=== PATIENT | female | born 1975 | race Caucasian/White ===

== ENCOUNTER 2019-07-03 23:38 | Emergency (ER) | payer BC, OTHER ==
[2019-07-04 00:01] VITALS: BP 128/97; PULSE 87
--- NOTE | 2019-07-04 00:11 | EDM.PDOC ---
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 Thornton is a very pleasant 44-year-old woman with a past medical history significant for MS and SVT, who works as a mortgage assistant for [employer]. She states that she was out on a call for a patient ( ) who had , according to his neighbors, intentionally injected a large dose of Lantus insulin in an attempt to suicide. When Mrs. Thornton and her partner arrived, the patient attempted to inject himself again. Mrs. Thornton lunged for the Lantus insulin pen, and accidentally got stuck on the webbing between her right 2nd and 3rd fingers. She is otherwise uninjured. The patient denies recent fever, chills, sore throat, ear pain, nasal or sinus congestion, cough, dyspnea, chest pain, palpitations, nausea, vomiting, constipation, diarrhea, abdominal pain, urinary symptoms, recent weight gain or weight loss, recent bloody bowel movements or black bowel movements, recent joint aches, headaches, or rashes. The patient's PCP is Dr. Homero Abrams, at [facility]. Her Neurologist is Dr. Annabelle Rasmussen. She received an influenza vaccine this season. - Related Data Allergies Allergy/AdvReac Type Severity Reaction Status Date / Time morphine Allergy Intermediate Rash Verified 07/04/19 00:01 ondansetron Allergy Mild Rash Verified 07/04/19 00:01 prochlorperazine Allergy Mild dystonia Verified 07/04/19 00:01 Sulfa (Sulfonamide Allergy Mild Hives Verified 07/04/19 00:01 Antibiotics) Home Meds: Home Meds Baclofen 5 mg PO 07/04/19 [History] Metoprolol Succinate 07/04/19 [History] Ocrelizumab [Ocrevus] 07/04/19 [History] Pregabalin [Lyrica] 07/04/19 [History] tiZANidine [Zanaflex] 4 mg PO BID 07/04/19 [History] Past Medical History Cardiovascular History: Reports: Arrhythmia (SVT) 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: Other (See Below) (Ovarian cysts) Neurological History: Reports: MS Psychiatric History: Reports: Other (See Below) (Fibromyalgia) - Past Surgical History Female Surgical History: Reports: Oophorectomy (complete right, incomplete left), Other (See Below) (Bladder suspension and pelvic floor repair) Musculoskeletal Surgical History: Reports: Other (See Below) (Right foot fusion) Social & Family History - Tobacco Use Smoking Status *Q: Never Smoker - Alcohol Use Alcohol Use History: Yes Alcohol Use Frequency: Socially - Recreational Drug Use Recreational Drug Use: No - Living Situation & Occupation Living situation: Reports: , with Spouse, with Family (Son) Occupation: Employed ([employer]) ED ROS GENERAL - Review of Systems Review Of Systems: Comprehensive ROS is negative, except as noted in HPI. ED EXAM, GENERAL - Physical Exam Exam: See Below Exam Limited By: No Limitations General Appearance: Alert, WD/WN, No Apparent Distress Extremities: Other (No visible injury to the needlestick site, to the webbing between the right 2nd and 3rd fingers) Course - Vital Signs Last Recorded V/S: Last Vital Signs Temp 36.6 C 07/03/19 23:58 Pulse 87 07/03/19 23:58 Resp 16 07/03/19 23:58 BP 128/97 H 07/03/19 23:58 Pulse Ox 97 07/03/19 23:58 - Orders/Labs/Meds Orders: Active Orders 24 hr Category Date Time Status HEPATITIS B SURF AB QUANT [REF] Stat Lab 07/03/19 23:57 Ordered Labs: Laboratory Tests 07/04/19 Range/Units 00:10 Hepatitis C Antibody Negative (NEGATIVE) HIV-1 Ab Rapid Screen Negative (NEGATIVE) - Re-Assessments/Exams Free Text/Narrative Re-Assessment/Exam: 07/04/19 00:06 I have ordered a hepatitis B surface antibody (which is a send-out test), a hepatitis C antibody, and an HIV rapid screen. The patient will be discharged so that she can return to work, and she will call us later tonight for the test results. In the meantime, the source patient, , will be tested for hepatitis B surface antigen, hepatitis C antibody, and HIV rapid screen. 07/04/19 02:00 The patient's hepatitis C antibody returned negative. Her HIV rapid screen returned negative. Departure - Departure Time of Disposition: 00:07 Disposition: Home, Self-Care 01 Condition: Good Clinical Impression: Needlestick injury of finger of right hand - Discharge Information *PRESCRIPTION DRUG MONITORING PROGRAM REVIEWED*: Not Applicable *COPY OF PRESCRIPTION DRUG MONITORING REPORT IN PATIENT FERNANDO: Not Applicable Instructions: Body Fluid Exposure Information, Needlestick and Sharps Injury, [id number] Referrals: Homero Abrams MD [Primary Care Provider] - Annabelle Rasmussen MD [Ordering Only Provider] - Forms: ED Department Discharge Additional Instructions: You were seen in the emergency room after attempting to take a Lantus pen away from a suicidal patient, accidentally getting stuck in the webbing between your 2nd and 3rd fingers your right hand. A baseline hepatitis B surface antibody, hepatitis C antibody, and HIV rapid screen have been obtained. The hepatitis C and HIV tests will result tonight, while the hepatitis B surface antibody test is a send-out test. In the meantime, a hepatitis B surface antigen, hepatitis C antibody, and HIV rapid screen have been drawn on the source patient . If any other problems, please do not hesitate to return to the ER. Sepsis Event Note - Evaluation Sepsis Screening Result: No Definite Risk - Focused Exam Vital Signs: Vital Signs Temp Pulse Resp BP Pulse Ox 07/03/19 23:58 36.6 C 87 16 128/97 H 97 Date Exam was Performed: 07/04/19 Time Exam was Performed: 02:00 - My Orders Last 24 Hours: My Active Orders 07/03/19 23:57 HEPATITIS B SURF AB QUANT [REF] Stat - Assessment/Plan Last 24 Hours: My Active Orders 07/03/19 23:57 HEPATITIS B SURF AB QUANT [REF] Stat
== END 2019-07-04 00:20 | disposition home or self-care (01) ==
LOC: JD.ED 23:38
DX: S69.91XA Unspecified injury of right wrist, hand and finger(s), initial encounter (principal); Z88.5 Allergy status to narcotic agent; Z88.2 Allergy status to sulfonamides; Z88.8 Allergy status to other drugs, medicaments and biological substances; Z79.899 Other long term (current) drug therapy; W26.8XXA Contact with other sharp object(s), not elsewhere classified, initial encounter
CPT/HCPCS: 36415; 86317; 86803; 99282; 99283; G0433

== ENCOUNTER 2021-10-13 03:55 | Emergency (ER) | payer BC ==
[2021-10-13 05:08] LABS: ESTIMATED GFR 62 mL/min (>60)
[2021-10-13 06:27] VITALS: BP 107/65; PULSE 67
== END 2021-10-13 06:20 | disposition home or self-care (01) ==
LOC: JD.ED 03:55
DX: U07.1 COVID-19 (principal); E66.9 Obesity, unspecified; Z68.30 Body mass index [BMI] 30.0-30.9, adult; Z88.6 Allergy status to analgesic agent; Z88.2 Allergy status to sulfonamides; Z88.8 Allergy status to other drugs, medicaments and biological substances; Z79.899 Other long term (current) drug therapy; Z20.822 Contact with and (suspected) exposure to COVID-19
CPT/HCPCS: 36415; 71046; 71046-26; 80053; 81001; 85007; 85027; 86140; 99285; U0002